=== PATIENT | female | born 1995 | race Caucasian/White ===

== ENCOUNTER 2019-08-29 17:58 | Emergency (ER) | payer OTHER, SELFPAY ==
[2019-08-29 18:16] VITALS: BP 112/68; PULSE 97; RESP 20; TEMP 37.9; O2SAT 100
--- NOTE | 2019-08-29 18:51 | ED.GENADULT ---
HPI - General Adult General Chief complaint: Upper Respiratory Infection Stated complaint: Upper Respiratory Infection Time Seen by Provider: 08/29/19 18:52 Source: patient Mode of arrival: ambulatory Limitations: no limitations History of Present Illness HPI narrative: This is a 24 years old female presented office for evaluation of cold symptoms for 6-day. Symptoms include sore throat, stuffy nose, hoarseness, and nauseous. She did not receive influenza vaccine for this season. She does not smoke. Denies exposure to influenza patient. She has been taking [id number] cold and flu medicine for her symptom. Related Data Home Medications Medication Instructions Recorded Confirmed etonogestrel [Nexplanon] 1 implant SUBDERMAL ONCE 08/29/19 08/29/19 sertraline 50 mg PO DAILY 08/29/19 08/29/19 Allergies Allergy/AdvReac Type Severity Reaction Status Date / Time No Known Allergies Allergy Verified 08/29/19 18:30 Review of Systems Review of Systems: Narrative: CONSTITUTIONAL:Reports fever, chills, sweats. ENT: Reports rhinorrhea, congestion, sore throat, otalgia. CARDIOVASCULAR: Denies chest pain RESPIRATORY: Reports cough GASTROINTESTINAL: Denies abdominal pain, vomiting, diarrhea. GENITOURINARY: Denies urinary symptoms SKIN: Denies rash MUSCULOSKELETAL: Denies acute back pain NEUROLOGIC: Denies lightheaded PMFSH Past Medical History Medical History (Updated 08/29/19 @ 18:58 by JEANNETTE Castillo) Anxiety and depression Migraine Social History Social History (Updated 08/29/19 @ 18:57 by JEANNETTE Castillo) Smoking status: Never smoker Comments At time of signature, I agree with nursing past medical, surgical, social and family history. There is no relevant family history pertinent to the presenting complaint. Exam Narrative: Exam Narrative: GENERAL: This is a well-nourished, well-developed patient, in no apparent distress. EYES: Sclera clear/white. Vision is grossly intact. EARS: External ears normal, auditory canals clear and without drainage, TMs normal without perforation. Hearing grossly intact. NOSE: External nose normal with no obvious nasal discharge, nares erythema and edematous THROAT: Mucous membranes moist, posterior pharynx erythema with drainage. Sounds hoarse. NECK: Neck supple, non-tender without lymphadenopathy, masses or thyromegaly. CARDIOVASCULAR: Regular rate and rhythm without murmurs, gallops, or rubs. RESPIRATORY: Clear to auscultation. Breath sounds equal bilaterally. No wheezes, rales, or rhonchi. GASTROINTESTINAL: Abdomen soft, non-tender, nondistended. Bowel sounds are active. No hepato-splenomegaly, or palpable masses. No guarding. SKIN: warm, intact with no suspicious lesions or rash, good texture and turgor. NEURO: awake, alert, and oriented to person, place and time. There were no obvious focal neurologic abnormalities. Steady gait Alexandra Coma Scale Eye Opening: Spontaneous 4 Alexandra Coma Scale Motor: Obeys Commands 6 Carbon Coma Scale Verbal: Oriented 5 Course Vital Signs Vital signs: Vital Signs Temperature 100.3 F H 08/29/19 18:16 Pulse Rate 97 08/29/19 18:16 Respiratory Rate 20 08/29/19 18:16 Blood Pressure 112/68 08/29/19 18:16 Pulse Oximetry 100 08/29/19 18:16 Temperature 100.3 F H 08/29/19 18:16 Pulse Rate 97 08/29/19 18:16 Respiratory Rate 20 08/29/19 18:16 Blood Pressure 112/68 08/29/19 18:16 Pulse Oximetry 100 08/29/19 18:16 Medical Decision Making MDM Narrative Medical decision making narrative: Discharge instructions reviewed with patient, as well as provided in writing per nursing staff. The instructions also include specific and strict return/GO TO THE ER as well as f/u information. All questions have been answered, and the patient deny any further questions with discharge and discharge plan. Differential Diagnosis Differential Diagnosis: pneumonia, Allergic Rhinitis, Upper respiratory cough
== END 2019-08-29 19:01 | disposition home or self-care (01) ==
PROVIDERS: Emergency Provider Nurse Practitioner; PCP Obstetrics & Gynecology
DX: J02.9 Acute pharyngitis, unspecified (principal); F41.9 Anxiety disorder, unspecified; F32.9 Major depressive disorder, single episode, unspecified
CPT/HCPCS: 87081; 87880; 99203; G0463